=== PATIENT | female | born 1945 | race Caucasian/White ===

== ENCOUNTER 2024-02-02 06:28 | Day surgery (SDC) | payer MEDICARE, OTHER, SELFPAY ==
[2024-02-02] VITALS (12 sets, daily range): BP systolic 118–165; BP diastolic 54–77; BMI 29.1
[2024-02-02] MEDS: NORMOSOL-R 1000 IV ×3 (08:05→18:30)
[2024-02-02] MEDS: Pyridium 200 MG PO (08:08)
[2024-02-02] MEDS: HEPARIN 5000 UNITS SC (08:08)
[2024-02-02] MEDS: TORADOL IV (16:29)
[2024-02-02] MEDS: TYLENOL 650 MG PO (16:41)
[2024-02-02] MEDS: LOVENOX 40 MG SC (16:42)
[2024-02-02] MEDS: TORADOL 15 MG IV ×2 (16:42→23:07)
--- NOTE | 2024-02-02 16:47 | OR.RPT ---
Operative Report
Operative Report
PREOPERATIVE DIAGNOSIS:
1. Pelvic organ prolapse
2. Stress urinary incontinence
POSTOPERATIVE DIAGNOSIS:
1. Pelvic organ prolapse
2. Stress urinary incontinence
PROCEDURE:
1. Colpectomy with colpocleisis
2. Enterocele repair
3. Posterior repair with perineoplasty
4. Levator ani muscle plication
5. Cystoscopy
ASSISTANTS:� NABIL Osuna
The assistance of NABIL Osuna was required due to the complexity of the procedure. During the procedure Yun Cruz assisted with retraction, resection, and closure of the wound.
ANESTHESIA:� General anesthesia with endotracheal tube
ESTIMATED BLOOD LOSS:� 20cc
SPECIMENS:� None
COMPLICATIONS:� Unable to place midurethral sling due to poor quality of vaginal mucosa
FINDINGS:� Intraoperative cystoscopy revealed normal bladder mucosa throughout.� No evidence of cystotomy, sutures, lacerations, lesions, or mesh.� There was normal efflux of urine from bilateral ureteral orifices.� Normal urethra.
INDICATIONS:� The patient has bothersome pelvic organ prolapse and urinary incontinence.� Preoperative urodynamic testing revealed stress urinary incontinence with urethral hypermobility.� Risks, benefits, indications and alternatives of the
procedure were reviewed with the patient.� Risks reviewed include nature of vaginal closure procedure, bleeding, infection, damage to bladder, ureter urethra, bowel, blood vessels, nerves, mesh complications, post-operative urinary retention and
post-operative urinary incontinence.� All questions answered and informed consent obtained.
PROCEDURE:
On day of surgery, patient properly identified in preoperative waiting area and informed consent of planned procedure again reviewed.� She was then taken to the operating room.� Sequential compression devices were placed on bilateral lower
extremities and 5,000 units of subcutaneous heparin was given for DVT prophylaxis.� General anesthesia was induced without difficulty.�� Ancef 2 grams IV was given for antibiotic prophylaxis.� The patient was placed in dorsal lithotomy position with
Stew stirrups and prepped and draped in the usual sterile fashion.� Surgical time-out was performed to review patient and procedure. Denise catheter was placed in the bladder to drain it.
The colpectomy and enterocele repair was performed as follows:� A marking pen was used to demarcate the areas of the vaginal mucosa to be excised to completely remove all vaginal mucosa:� Anterior vaginal mucosa from the bladder neck to vaginal
cuff.� Posterior vaginal mucosa from the vaginal cuff to distally out to include a triangle of skin on the peritoneum. Starting posteriorly, the vaginal mucosa, perineum and skin were superficially injected with 1% lidocaine 1:100,000 epinephrine.
The scalpel was used to circumscribe the area of vaginal mucosa and skin to be excised. Triangular area of perineum skin was dissected free. Posterior vaginal mucosa was opened up in the midline going from the introitus up to the apical vaginal
cuff. Vaginal mucosa in the marked area was then dissected free from the underlying rectovaginal fascia and removed. Attention was then turned anteriorly. In a similar fashion, anterior vaginal mucosa was superficially injected with 1% lidocaine
1:100,000 epinephrine. The scalpel was used to circumscribe the area of vaginal mucosa to be dissected free. Metzenbaum scissors were used to undermine and dissect free this anterior vaginal mucosa from the underlying pubocervical fascia. The vagina
was noted to be free of all mucosa.� Starting at the vaginal apex, sequential purse-string stitches of #3-0 Vicryl were then placed to close off space and invert the vagina.� The procidentia was reduced and the vagina was completely obliterated.
At this time the vaginal mucosa was very thin and damaged due to her pessary use. Therefore, the midurethral sling was not placed.
The posterior repair and perineorrhaphy was performed as follows.� Interrupted stitches of #0 Vicryl were used to plicate the levator ani muscles in the midline in multiple layers.� This reduced the rectocele and finished obliterating the vagina.�
Interrupted stitches of #2-0 PDS were also used to plicate the bulbospongiosus and transverse perineal muscles in the midline, thus rebuilding the perineal body.�� The remaining edges of the vaginal mucosa were closed with #2-0 Vicryl running
stitch, thus complete the colpectomy.� The remaining vaginal opening was 1-2 cm and remaining vaginal depth was 1-2 cm. Vaginal packing was not placed.
Sponge, lap and needle counts were correct x 2.� I, Dr. Morrow was scrubbed and present throughout the procedure.� The patient was awaked and sent to the PACU in stable condition.
[2024-02-02] MEDS: ROXICODONE 5 MG PO (18:27)
--- NOTE | 2024-02-02 20:35 | PTCARENOTE ---
Received pt from day shift. Pt is AAOX3. VSS. complains of 5/10 pain (see MAR). IVF infusing. Denise in place. Pt resting comfortably.
[2024-02-02] MEDS: COLACE 100 MG PO (20:46)
[2024-02-02] MEDS: LIPITOR 40 MG PO (21:02)
[2024-02-02] MEDS: COZAAR 100 MG PO (21:02)
[2024-02-02] MEDS: CHLORASEPTIC/SORE THROAT SPRAY 1 SPRAY PO (22:04)
[2024-02-02] MEDS: ROXICODONE 2.5 MG PO (23:14)
[2024-02-03] MEDS: NORMOSOL-R 1000 IV (04:28)
--- NOTE | 2024-02-03 04:34 | DOWNTIME ---
There was a [employer] Client Lead Principal Technical Architect Downtime on 02/03/2024 from 0100 to 02/03/2024 at 0255. Downtime documentation of patient's care, including medication administrations, has been reconciled in the electronic record per guidelines. Refer to the
patient's paper chart under the miscellaneous tab to see printed paper medication records and downtime forms.
[2024-02-03] MEDS: TORADOL 15 MG IV (05:08)
[2024-02-03 05:38] LABS: Hematocrit 30.5 % (37.0-47.0); Hemoglobin 10.6 g/dL (12.0-16.0); Mean Corp Hgb Conc. 34.8 g/dL (33.0-37.0); Mean Corpuscular Hgb 30.6 pg (27.0-31.0); Mean Corpuscular Volume 88.2 fL (81.0-99.0); Mean Platelet Volume 9.5 fL (7.4-10.4); Platelet Count 252 10^3/uL (130-400); Red Blood Cell Count 3.46 10^6/uL (4.20-5.40); Red Cell Dist. Width 12.4 % (11.5-14.5); White Blood Cell Count 10.3 10^3/uL (4.8-10.8)
[2024-02-03 05:57] LABS: Blood Urea Nitrogen 13 mg/dl (7-17); Carbon Dioxide 20 mmol/L (22-30); Chloride 100 mmol/L (98-107); Estimated Creatinine Clearance 71 ml/min; Potassium 4.5 mmol/L (3.5-5.1); Sodium 133 mmol/L (135-145)
[2024-02-03 07:18] VITALS: BP 130/73
[2024-02-03] MEDS: COLACE 100 MG PO (08:03)
--- NOTE | 2024-02-03 08:43 | W.PN.GYN ---
Today's Communication / Plan
-
1. voiding trial
2. D/c home
Physician Note
-
Assessment and Plan:
78 yo woman POD 1 s/p colpectomy with colpocleisis: doing well postop and meeting milestones.
1. Postoperative care:
-hep lock iv
-regular diet
-lovenox, ambulation, scds
-cbc wnl
-bmp wnl
-uop: adequate
-voiding trial: pending
2. dispo
-d/c home
Subjective:
no acute complaints, no pain, no significant bleeding, denies fever/chills, nausea/vomiting, chest pain, sob
Objective:
Intake and Output
02/01/24 02/02/24 02/03/24 02/04/24
06:59 06:59 06:59 06:59
Intake Total 2054
Output Total 1914
Balance 140 / 140
Intake:
Oral fluids 480 / 480
IV fluids (Total) 1575 / 1575
normosol 75 / 75
Output:
Urine, Denise 1914
Vital Signs
Temp Pulse Resp BP Pulse Ox
98 F 73 17 130/73 96
02/03/24 07:18 02/03/24 07:18 02/03/24 07:18 02/03/24 07:18 02/03/24 07:18
Lab Results
02/03/24 04:46
02/03/24 04:46
Exam:
Abdomen: soft, nontender, nondistended
: minimal spotting
--- NOTE | 2024-02-03 10:52 | CM ---
Reviewed the chart notes and spoke with the patient and spouse at the bedside. The patient resides with the spouse in a two story home with three steps to enter. The patient reports no DME/VN/SNF in past. Patient's spouse to provide
transportation to home. CM continues to be available to patient/family and is monitoring medical plan for needs at discharge.
Plan: Discharge to home today. No needs.
== END 2024-02-03 10:36 | disposition home or self-care (01) ==
LOC: SDS 06:28
PROVIDERS: ATTENDING PHYSICIAN Obstetrics & Gynecology
DX: N99.3 Prolapse of vaginal vault after hysterectomy (principal); Y83.8 Other surgical procedures as the cause of abnormal reaction of the patient, or of later complication, without mention of misadventure at the time of the procedure; N95.2 Postmenopausal atrophic vaginitis; N39.3 Stress incontinence (female) (male); N36.41 Hypermobility of urethra
CPT/HCPCS: 57283; 57120; 57265; 80051; 82565; 84520; 85027; 86850; 86900; 86901

== ENCOUNTER → 2024-05-27 12:28 | Outpatient (REF) | payer MEDICARE, OTHER, SELFPAY | LOC: WDC 12:28 | PROVIDERS: ATTENDING PHYSICIAN Family Medicine | DX: Z12.31 Encounter for screening mammogram for malignant neoplasm of breast (principal) | CPT/HCPCS: 77063; 77067 ==

== ENCOUNTER → 2024-10-25 09:01 | Outpatient (REF) | payer MEDICARE, OTHER, SELFPAY | LOC: RAD 09:01 | PROVIDERS: ATTENDING PHYSICIAN Obstetrics & Gynecology | DX: N20.0 Calculus of kidney (principal) | CPT/HCPCS: 76770 ==

== ENCOUNTER → 2025-05-31 08:43 | Outpatient (REF) | payer MEDICARE, OTHER, SELFPAY | LOC: WDC 08:43 | PROVIDERS: ATTENDING PHYSICIAN Family Medicine | DX: Z12.31 Encounter for screening mammogram for malignant neoplasm of breast (principal) | CPT/HCPCS: 77063; 77067 ==

== ENCOUNTER → 2025-06-27 07:50 | Outpatient (REF) | payer MEDICARE, OTHER, SELFPAY | LOC: RCS 07:50 | PROVIDERS: ATTENDING PHYSICIAN Internal Medicine Cardiovascular Disease; FAMILY PHYSICIAN Family Medicine | DX: I10 Essential (primary) hypertension (principal); I25.10 Atherosclerotic heart disease of native coronary artery without angina pectoris; I35.0 Nonrheumatic aortic (valve) stenosis | CPT/HCPCS: 93306 ==